=== PATIENT | male | born 1945 | race Caucasian/White ===

== ENCOUNTER → 2017-02-27 | Outpatient (CLI) | payer MEDICARE, OTHER ==
[~2017-02-27] MED LIST: ASPI-496 PO; CHOL100015 PO; FENTANYL PF 100 MCG/2ML ONE; GADOBUTROL 10 MMOL/10 ML PFS ONE; LORA10TA62 PO; MIDAZOLAM 1 MG/ML, 5ML ONE
== END | disposition home or self-care (01) ==
LOC: RAD 09:08
PROVIDERS: ATTEND Nurse Practitioner Primary Care
DX: R41.82 Altered mental status, unspecified (principal)
CPT/HCPCS: 70553; A9585; J2250; J3010; 99156; 99157

== ENCOUNTER → 2018-03-18 | Outpatient (CLI) | payer MEDICARE, OTHER ==
[~2018-03-18] MED LIST changes: -FENTANYL PF 100 MCG/2ML ONE; -GADOBUTROL 10 MMOL/10 ML PFS ONE; -MIDAZOLAM 1 MG/ML, 5ML ONE
== END | disposition home or self-care (01) ==
LOC: RAD 10:27
PROVIDERS: ATTEND Nurse Practitioner Primary Care
DX: M25.552 Pain in left hip (principal)

== ENCOUNTER → 2018-03-25 | Outpatient (CLI) | payer MEDICARE, OTHER ==
[~2018-03-25] MED LIST changes: +FENTANYL PF 100 MCG/2ML ONE; +FLUMAZENIL 0.1 MG/1 ML, 5ML ONE; +GADOBUTROL 10 MMOL/10 ML PFS ONE; +MIDAZOLAM 1 MG/ML, 5ML ONE; +NALOXONE 1 MG/ML, 2ML ONE
== END ==
LOC: RAD 07:33
PROVIDERS: ATTEND Nurse Practitioner Primary Care
DX: D32.0 Benign neoplasm of cerebral meninges (principal); R41.82 Altered mental status, unspecified
CPT/HCPCS: 70553; 99156; A9585; J2250; J3010; J2310

== ENCOUNTER 2020-04-05 12:00 | Outpatient (CLI) | payer MEDICARE, OTHER ==
[~2020-04-05 12:00] MED LIST changes: -FENTANYL PF 100 MCG/2ML ONE; -FLUMAZENIL 0.1 MG/1 ML, 5ML ONE; -GADOBUTROL 10 MMOL/10 ML PFS ONE; -MIDAZOLAM 1 MG/ML, 5ML ONE; -NALOXONE 1 MG/ML, 2ML ONE
[2020-04-05] MEDS ORDERED: FLUMAZENIL 0.1 MG/1 ML, 5ML ONE (13:25)
[2020-04-05] MEDS ORDERED: FENTANYL PF 100 MCG/2ML ONE (13:25)
[2020-04-05] MEDS ORDERED: MIDAZOLAM 1 MG/ML, 5ML ONE ×2 (13:25)
[2020-04-05] MEDS ORDERED: NALOXONE 1 MG/ML, 2ML ONE (13:26)
[2020-04-05] MEDS ORDERED: GADOTERATE 10 MMOL/20 ML SYR ONE (14:00)
== END 2020-04-05 23:59 | disposition home or self-care (01) ==
LOC: RAD 12:00
PROVIDERS: ATTEND Nurse Practitioner Primary Care
DX: D32.0 Benign neoplasm of cerebral meninges (principal); I10 Essential (primary) hypertension; E78.2 Mixed hyperlipidemia; Z79.899 Other long term (current) drug therapy; Z86.718 Personal history of other venous thrombosis and embolism; Z87.891 Personal history of nicotine dependence
CPT/HCPCS: 70553; 99156; 99157; A9575; J2250; J3010; J2310

== ENCOUNTER → 2021-01-09 | Outpatient (CLI) | payer MEDICARE, OTHER ==
[~2021-01-09] MED LIST changes: +LORA-59 PO; -LORA10TA62 PO
== END | disposition home or self-care (01) ==
LOC: RAD 14:42
PROVIDERS: ATTEND Nurse Practitioner
DX: R22.42 Localized swelling, mass and lump, left lower limb (principal); M79.662 Pain in left lower leg